=== PATIENT | female | born 1960 | race Hispanic/Latino ===

== ENCOUNTER 2017-05-18 20:23 | Emergency (ER) | payer BC ==
[~2017-05-18] VITALS: Ht 162.6 cm; Wt 72.8 kg
[2017-05-18 21:17] LABS: HEMATOCRIT 38.1 % (36.0-46.0); HEMOGLOBIN 12.9 G/DL (11.9-15.5); MCH 29.1 PG (29.0-34.0); MCHC 33.9 G/DL (30.0-36.0); PLATELET COUNT 259 K/uL (156-360); RBC DIS.WIDTH-CV 11.9 % (11.8-14.6); RBC DIS.WIDTH-SD 37.5 % (39-53); RED BLOOD COUNT 4.43 M/uL (3.80-5.20); WHITE BLOOD COUNT 8.7 K/uL (4.1-10.2)
[2017-05-18 21:32] LABS: CHLORIDE 106 mEq/L (99-109)
[2017-05-18 21:33] LABS: POTASSIUM 3.8 mEq/L (3.7-5.4); SODIUM 138 mEq/L (136-147)
[2017-05-18 21:35] LABS: GLUCOSE 105 mg/dL (70-99); TOTAL PROTEIN 7.4 g/dL (6.4-8.3)
[2017-05-18 21:37] LABS: TOTAL BILIRUBIN 0.3 mg/dL (0.0-1.0)
[2017-05-18 21:38] LABS: ALKALINE PHOSPHATASE 58 IU/L (3-129); CREATININE 0.7 mg/dL (0.6-1.3); GFR ESTIMATE (CALCULATED) > 59 mL/min/
[2017-05-18 21:40] LABS: AST (GOT) 22 IU/L (2-34); UREA NITROGEN (BUN) 21 mg/dL (9-23)
[2017-05-18 21:41] LABS: ALT (GPT) 30 IU/L (3-49)
[2017-05-18 21:42] LABS: LIPASE 37 U/L (1.0-51.0)
[2017-05-18 22:44] LABS: APPEARANCE CLEAR ((CLEAR)); BILIRUBIN NEGATIVE; BLOOD NEGATIVE; COLOR YELLOW ((YELLOW)); GLUCOSE (STRIP) NEGATIVE; KETONES NEGATIVE; LEUKOCYTES NEGATIVE; NITRITE NEGATIVE; PROTEIN (STRIP) NEGATIVE; SPECIFIC GRAVITY 1.016 (1.000-1.030); UCUL ADDED? NO; UROBILINOGEN 0.2 MG/DL (0.2-1.0)
[2017-05-18] MEDS ORDERED: PHENAZOPYRIDIN200 MG PO (23:30)
[2017-05-19 00:08] VITALS: BP 149/93
== END 2017-05-19 00:10 | disposition home or self-care (01) ==
LOC: EME 20:23
DX: N21.0 Calculus in bladder (principal); N20.0 Calculus of kidney; Z87.442 Personal history of urinary calculi; Z88.0 Allergy status to penicillin
CPT/HCPCS: 74176; 80053; 81003; 83690; 85027; 99281; 99284